=== PATIENT | female | born 1995 | race Caucasian/White ===

== ENCOUNTER 2017-04-18 21:49 | Inpatient (IN) | payer OTHER ==
[~2017-04-18] VITALS: Ht 162.6 cm; Wt 61.2 kg
[2017-04-19] MEDS ORDERED: PRENATAL TABLE1 EAC1 PO (06:31)
[2017-04-21] MEDS ORDERED: ULTRACET PO (10:02)
== END 2017-04-21 10:19 | DRG 775 ==
LOC: OBS/DEL 21:49 → LDR 04-19 07:58 → OB/GYN 04-19 11:59
PROC: 0KQM0ZZ Repair Perineum Muscle, Open Approach (ICD-10-PCS; principal; 2017-04-19)
PROC: 10E0XZZ Delivery of Products of Conception, External Approach (ICD-10-PCS; 2017-04-19)
PROC: 4A1HXCZ Monitoring of Products of Conception, Cardiac Rate, External Approach (ICD-10-PCS; 2017-04-19)
PROC: 4A033R1 Measurement of Arterial Saturation, Peripheral, Percutaneous Approach (ICD-10-PCS; 2017-04-19)
PROC: 0W8NXZZ Division of Female Perineum, External Approach (ICD-10-PCS; 2017-04-19)
DX: O70.1 Second degree perineal laceration during delivery (principal); Z37.0 Single live birth; Z3A.39 39 weeks gestation of pregnancy